=== PATIENT | male | born 1965 | race Caucasian/White ===

== ENCOUNTER → 2018-03-14 14:42 | Outpatient (CLI) | payer OTHER, SELFPAY ==
--- NOTE | 2018-03-14 | DI.ECHO.S_ITS ---
[facility]---------+ [facility] +---------+ : : [address] : : : : [id number] : : : : Phone: [phone]---------+ Echocardiogram Report + + :Name: ANN WOOD Study Date: 03/14/2018 Height: 74 in : :[facility] Location: [facility] Weight: 264 lb : : Gender: Male BSA: 2.4 m2 : :: 1965 Age: 52 yrs BP: 125/90 mmHg: :Reason For Study: TIA : :Ordering Physician: Alex : :Kaia Eagle Performed By: Geena Page : + + Interpretation Summary Limited Echo to assess for intracardiac shunt. 1) Normal left ventricular size, thickness, wall motion, and systolic function (EF 60-65%). 2) Injection of contrast documented no interatrial shunt. 3) Mild atherosclerotic plaque(s) in the aortic arch. 4) Compared to the echo done 12/20/2016, bubble study is done today and shows no intra-cardiac shunting. Procedure: A two-dimensional transthoracic echocardiogram with color flow and Doppler was performed. The study quality was technically adequate. Comparison is made with the echocardiogram of 12/20/2016. A saline contrast injection was performed to assess for cardiac shunting. The patient was in normal sinus rhythm during the exam. Left Ventricle: The left ventricle is normal in size, wall thickness, and systolic function without any focal wall motion abnormalities. The ejection fraction is estimated to be 60-65%. Atria: Both atria are normal in size. There is no Doppler evidence for an interatrial shunt. Injection of contrast documented no interatrial shunt. Great Vessels: The ascending aorta is at the upper limits of normal in size. Mild atherosclerotic plaque(s) in the aortic arch. MMode/2D Measurements & Calculations asc Aorta Diam: 3.4 cm LA A2 area: 19.3 cm2 LA A4 area: 18.5 cm2 LA length (vol): 5.9 cm LA vol: 51.4 ml LA vol index: 21.0 ml/m2 RA long axis: 5.6 cm RA area: 17.3 cm2 RA vol: 45.5 ml RA : 18.6 ml/m2 Doppler Measurements & Calculations MV E max alejandro: 60.4 cm/sec MV P1/2t max alejandro: 61.1 cm/sec MV A max alejandro: 50.4 cm/sec MVA(P1/2t): 4.2 cm2 MV E/A: 1.2 Med Peak E' Alejandro: 7.4 cm/sec E/E' med: 8.1 Lat Peak E' Alejandro: 6.2 cm/sec E/E' lat: 9.8 E/e' average: 8.9 MV dec time: 0.17 sec MV P1/2t: 52.1 msec Reading Physician:03:42 PM
== END ==
PROVIDERS: Visit Provider Hospitalist
DX: G45.9 Transient cerebral ischemic attack, unspecified (principal); I70.0 Atherosclerosis of aorta
CPT/HCPCS: 93307

== ENCOUNTER → 2021-09-21 11:08 | Outpatient (CLI) | payer OTHER, SELFPAY ==
--- NOTE | 2021-09-21 | DI.MRI.S_ITS ---
PROCEDURE: MR SHOULDER LT WO CON INDICATIONS: Unspecified rotator cuff tear or rupture of left TECHNIQUE: Noncontrast oblique coronal T2 fast spin echo with fat saturation, oblique sagittal T1 spin echo and T2 fast spin echo with fat saturation, axial T1 spin echo and T2 fast spin echo with fat saturation through the shoulder. COMPARISON: None. FINDINGS: Image quality: Excellent. Rotator cuff: There is low-grade partial-thickness intrasubstance tearing of the anterior, mid, and posterior supraspinatus tendon at the humeral insertion site. Low-grade partial-thickness intrasubstance tearing of the anterior infraspinatus tendon at the humeral insertion site. Low-grade partial-thickness bursal surface tearing of the mid/posterior infraspinatus tendon at the musculotendinous junction. Subscapularis and teres minor tendons are intact. No rotator cuff atrophy. Bones and bursae: No bone marrow contusions or fractures. Mild acromioclavicular and moderate acromioclavicular joint degeneration. The acromion demonstrates conventional anatomy, without an os acromiale. No pathologic subacromial-subdeltoid or subcoracoid bursal fluid is present. Capsule and soft tissues: There is undercutting of the posterior and inferior labrum. The long head of the biceps tendon demonstrates normal location and morphology. The rotator interval appears normal, without fibrosis. The coracohumeral ligament is normal in thickness. IMPRESSION: 1. Supraspinatus and infraspinatus tendinopathy with superimposed low-grade partial-thickness tears. No full-thickness rotator cuff tear. 2. Acromioclavicular joint osteoarthritis. 3. Glenoid labral tearing. Dictated by: Nj Tidwell M.D. on 09/21/2021 at 15:15 Approved by: Nj Tidwell M.D. on 09/21/2021 at 15:16
== END ==
PROVIDERS: PCP Nurse Practitioner Family; Referring Provider Orthopaedic Surgery; Visit Provider Orthopaedic Surgery
DX: M75.112 Incomplete rotator cuff tear or rupture of left shoulder, not specified as traumatic (principal); S43.492A Other sprain of left shoulder joint, initial encounter; M19.012 Primary osteoarthritis, left shoulder; M25.512 Pain in left shoulder
CPT/HCPCS: 73221

== ENCOUNTER → 2023-05-23 09:12 | Outpatient (CLI) | payer OTHER, SELFPAY ==
--- NOTE | 2023-05-23 09:13 | DI.NM.S_ITS ---
PROCEDURE: NM JANNY PERF SPECT REST & STR Rest and exercise myocardial perfusion SPECT with gated imaging and ejection fraction RADIOPHARMACEUTICAL: 27 mCi Tc-99m sestamibi IV at rest and 25.7 mCi Tc-99m sestamibi IV at peak exercise. A [id number] was performed. INDICATIONS: Coronary atherosclerosis due to calcified coronary TECHNIQUE: Radiopharmaceutical was injected at peak stress test, and also at rest. SPECT images were obtained. SPECT myocardial perfusion images were displayed in short axis, horizontal long axis, and vertical long axis views. Gated images were reviewed using [facility] software. COMPARISON: None. CARDIAC STRESS: A standard Nehemias treadmill exercise tolerance test was performed by the patient under the supervision of an attending staff. The patient exercised for 5 minutes and 2 seconds; 7.0 METS; functional aerobic impairment (CHOLO) is +44%. Hemodynamic data: There is normal blood pressure and heart rate response to exercise stress. Patient achieved 89% of maximum predicted heart rate at peak exercise. Maximum blood pressure 196/102. Symptoms: Patient complained of chest and bilateral shoulder pain during exercise. EKG: Borderline ST segment depressions inferiorly however artifact is present making interpretation for ischemia difficult; no ectopy. FINDINGS: Raw data: There is good myocardial labeling by radiotracer. No significant motion artifacts. Gqqm-us-lwnyn ratio is 0.16 (normal is less than 0.38 for sestamibi tracer, and less than 0.50 for thallium tracer). Left ventricle function: Gated images demonstrate normal left ventricle wall thickening. No segmental wall motion abnormality. No transient ischemic dilation; TID is 0.93 (normal less than 1.3). The left ventricle resting end-diastolic volume is 106 mL. Left ventricle stress ejection fraction is 70%; normal values are above 45%. Myocardial perfusion: There is normal distribution of activity in the left and right ventricular myocardium. No fixed or reversible perfusion defects. IMPRESSION: Low risk perfusion study. No evidence of exercise ischemia on SPECT imaging. Normal LV size and function. Borderline positive exercise ECG. Exercise-induced chest pain that resolved with rest. Normal hemodynamic response. Reduced exercise capacity. Dictated by: Carlyn Clark D.O. on 05/27/2023 at 17:07 Approved by: Carlyn Clark D.O. on 05/27/2023 at 17:14
== END ==
PROVIDERS: Referring Provider Internal Medicine Cardiovascular Disease; Visit Provider Internal Medicine Cardiovascular Disease
DX: I25.10 Atherosclerotic heart disease of native coronary artery without angina pectoris (principal); I25.84 Coronary atherosclerosis due to calcified coronary lesion
CPT/HCPCS: 78452; 93017; A9502

== ENCOUNTER → 2023-05-30 09:21 | Outpatient (CLI) | payer OTHER, SELFPAY ==
--- NOTE | 2023-05-30 09:23 | DI.ECHO.S_ITS ---
[facility]---------+ [facility] +---------+ : : [address] : [address] : : : : [id number] : : : : Phone: [phone]---------+ Echocardiogram Report + + :Name: ANN WOOD Study Date: 05/30/2023 Height: 74 in : :[facility] ReadingLocation: Weight: 268 lb : : Gender: Male BSA: 2.5 m2 : :: 1965 Age: 58 yrs BP: 174/98 mmHg: :Reason For Study: PALPITATIONS : :Ordering Physician: MAYKEL, : :OMAYRA Performed By: Betty Floyd : :Referring: OMAYRA BRAR : + + Interpretation Summary The left ventricle is normal in size. The left ventricular ejection fraction is normal. The ejection fraction is estimated to be 55-60%. The right ventricle is normal in size and function. There is mild tricuspid regurgitation. Compared to the prior echo exam, there has been no change in TR severity. The right ventricular systolic pressure is estimated to be at least 21 mmHg based on an estimated right atrial pressure of 3 mm Hg. Procedure: A two-dimensional transthoracic echocardiogram with color flow and Doppler was performed. The study quality was technically adequate. Comparison is made with the echocardiogram of 03/14/2018. The patient was in sinus rhythm with heart rates between 58-63 bpm during the exam. Left Ventricle: The left ventricle is normal in size. Proximal septal thickening is noted. There is no echo evidence for significant left ventricular outflow tract obstruction. There is no thrombus. The ejection fraction is estimated to be 55-60%. The left ventricular ejection fraction is normal. There are no focal wall motion abnormalities. Diastolic parameters suggest probable normal left ventricular diastolic function and normal filling pressures. Right Ventricle: The right ventricle is normal in size and function. Atria: The left atrial size is normal. Right atrial size is normal. There is no Doppler evidence for an interatrial shunt. Mitral Valve: There is mild mitral annular calcification. There is trace mitral regurgitation. Aortic Valve: The aortic valve is trileaflet. The aortic valve opens well. There is no aortic valve stenosis. No aortic regurgitation is present. Tricuspid Valve: The tricuspid valve is normal. There is mild tricuspid regurgitation. The right ventricular systolic pressure is estimated to be at least 21 mmHg based on an estimated right atrial pressure of 3 mm Hg. Compared to the prior echo exam, there has been no change in TR severity. Pulmonic Valve: The pulmonic valve leaflets are thin and pliable; valve motion is normal. There is trace pulmonic regurgitation. Great Vessels: The aortic root is normal size. BSA: 2.5 m2. The dimensions of the ascending aorta are normal. The IVC is of normal diameter and collapses greater than 50% with a sniff. This suggests a low right atrial pressure of 3 mm Hg. Pericardium/ Pleura There is no pericardial effusion. There is an anterior echo-free space consistent with a fat pad. There is no pleural effusion. MMode/2D Measurements & Calculations LVIDd: 5.3 cm LVOT diam: 2.5 cm LVIDs: 3.6 cm Ao root diam: 4.2 cm FS: 32.1 % asc Aorta Diam: 3.5 cm IVSd: 0.91 cm Ao Arch Diam (Prox Trans): 2.9 cm LVPWd: 0.70 cm LV graham. diameter/BSA (cm/m^2): 2.1 LV sys. diameter/BSA (cm/m^2): 1.5 LA A2 area: 21.6 cm2 RA long axis: 5.4 cm LA A4 area: 18.2 cm2 RA area: 14.8 cm2 LA length (vol): 5.1 cm RA vol: 34.6 ml LA vol: 65.4 ml RA : 14.0 ml/m2 LA vol index: 26.6 ml/m2 IVC diam: 1.9 cm RVD1 (basal): 3.0 cm RVD2 (mid): 2.6 cm TAPSE: 2.0 cm Doppler Measurements & Calculations Ao V2 max: 102.0 cm/sec LVOT Max Alejandro: 90.0 cm/sec Ao V2 mean: 72.2 cm/sec LV V1 max P.2 mmHg Ao max P.2 mmHg LV V1 VTI: 21.7 cm Ao mean P.3 mmHg PUNEET(I,D): 4.7 cm2 Ao V2 VTI: 22.5 cm PUNEET(V,D): 4.3 cm2 sev ratio: 0.96 PUNEET indexed to BSA (cm^2/m^2): 1.9 MV E max alejandro: 77.9 cm/sec TR max alejandro: 210.4 cm/sec MV A max alejandro: 41.0 cm/sec TR max P.7 mmHg MV E/A: 1.9 PA V2 max: 72.5 cm/sec Med Peak E' Alejandro: 7.1 cm/sec PA V2 mean: 51.3 cm/sec E/E' med: 11.0 PA mean P.2 mmHg Lat Peak E' Alejandro: 10.5 cm/sec PA pr(Accel): 39.6 mmHg E/E' lat: 7.4 E/e' average: 9.2 MV dec time: 0.22 sec SV(LVOT): 105.5 ml Reading Physician:04:04 PM
== END ==
LOC: ECHO 09:22
PROVIDERS: Referring Provider Internal Medicine Cardiovascular Disease; Visit Provider Internal Medicine Cardiovascular Disease
DX: I08.1 Rheumatic disorders of both mitral and tricuspid valves (principal); R00.2 Palpitations
CPT/HCPCS: 93306